=== PATIENT | female | born 1955 | race Caucasian/White ===

== ENCOUNTER → 2017-06-12 | Outpatient (CLI) | payer OTHER ==
--- NOTE | 2017-06-16 10:26 | MM ---
Reason for exam: screening (asymptomatic). Last mammogram was performed 1 year and 2 months ago. History: Patient is postmenopausal and has history of other cancer at age 34. 8 chemotherapies, 1988. Radiation therapy of the left breast, 1988. Physical Findings: A clinical breast exam by your physician is recommended on an annual basis and results should be correlated with mammographic findings. MG 3D Screening Mammo W/Cad Bilateral CC and MLO view(s) were taken. Prior study comparison: April 05, 2016, bilateral MG screening mammo w CAD. August 04, 2015, left breast MG diagnostic mammo LT w CAD. The breast tissue is almost entirely fat. There is no discrete abnormality. No significant changes when compared with prior studies. ASSESSMENT: Negative, BI-RAD 1 RECOMMENDATION: Routine screening mammogram of both breasts in 1 year.
== END | disposition home or self-care (01) ==
LOC: RADMAMWWP 14:52
PROVIDERS: ATTEND Internal Medicine
DX: Z12.31 Encounter for screening mammogram for malignant neoplasm of breast (principal)
CPT/HCPCS: 77063; G0202

== ENCOUNTER → 2019-02-09 | Outpatient (CLI) | payer OTHER ==
--- NOTE | 2019-02-11 11:25 | MM ---
Reason for exam: screening (asymptomatic). Last mammogram was performed 1 year and 8 months ago. History: Patient is postmenopausal and has history of other cancer at age 34. 8 chemotherapies, 1988. Radiation therapy of the left breast, 1988. Physical Findings: A clinical breast exam by your physician is recommended on an annual basis and results should be correlated with mammographic findings. MG 3D Screening Mammo W/Cad Bilateral CC and MLO view(s) were taken. Prior study comparison: June 12, 2017, bilateral MG 3d screening mammo w/cad. April 05, 2016, bilateral MG screening mammo w CAD. The breast tissue is almost entirely fat. No significant changes when compared with prior studies. ASSESSMENT: Benign, BI-RAD 2 RECOMMENDATION: Routine screening mammogram of both breasts in 1 year.
== END | disposition home or self-care (01) ==
LOC: RADMAMWWP 11:27
PROVIDERS: ATTEND Internal Medicine
DX: Z12.31 Encounter for screening mammogram for malignant neoplasm of breast (principal)
CPT/HCPCS: 77063; 77067

== ENCOUNTER → 2021-01-17 | Outpatient (CLI) | payer MEDICARE ==
--- NOTE | 2021-01-18 13:43 | MM ---
Reason for exam: screening (asymptomatic). Last mammogram was performed 1 year and 11 months ago. History: Patient is postmenopausal and has history of other cancer at age 34. 8 chemotherapies, 1988. Radiation therapy of the left breast, 1988. Physical Findings: A clinical breast exam by your physician is recommended on an annual basis and results should be correlated with mammographic findings. MG 3D Screening Mammo W/Cad Bilateral CC and MLO view(s) were taken. Prior study comparison: February 09, 2019, bilateral MG 3d screening mammo w/cad. June 12, 2017, bilateral MG 3d screening mammo w/cad. There are scattered fibroglandular densities. Benign calcifications. There is chronic nodularity in the left breast, stable. No significant changes when compared with prior studies. ASSESSMENT: Benign, BI-RAD 2 RECOMMENDATION: Routine screening mammogram of both breasts in 1 year.
== END | disposition home or self-care (01) ==
LOC: RADMAMWWP 08:34
PROVIDERS: ATTEND Family Medicine
DX: Z12.31 Encounter for screening mammogram for malignant neoplasm of breast (principal)
CPT/HCPCS: 77063; 77067

== ENCOUNTER → 2021-06-13 | Outpatient (CLI) | payer MEDICARE ==
--- NOTE | 2021-06-13 10:44 | CT ---
EXAMINATION TYPE: CT abdomen pelvis wo con DATE OF EXAM: 06/13/2021 COMPARISON: CT chest 09/14/2015 HISTORY: 66-year-old female Generalized pain and pressure for 1-[address] DLP: 1121.9 mGycm. Automated exposure control for dose reduction was used. TECHNIQUE: Contiguous axial scanning of the abdomen and pelvis without IV contrast. Coronal and sagit cecil reconstructions performed. FINDINGS: Heart normal size without pericardial effusion. Partially visualized pulmonary nodule right middle lo be measuring at least 7 mm, not seen in 2015. No pleural effusion. Tiny hiatal hernia. Some surgical change along the stomach should be correlated with patient's surgic al history, possibly some type of vertical stapling procedure. Oral contrast is present, extending in to the splenic flexure of the colon. Medication tablet is noted in the proximal body at the margin of the surgical change, axial image 22. An impacted medication tablet should be excluded. Noncontrast appearance of the liver, adrenal glands, left kidney with small parapelvic cysts, right k idney with extra renal pelvis, spleen, and pancreas otherwise show no gross anomaly. No dilated small bowel, free fluid, or free air. No mesenteric or retroperitoneal lymphadenopathy. Mild overall stool burden. Mild diverticular change distal sigmoid colon. No pericolonic inflammatory change. Milder atherosclerotic calcifications infrarenal abdominal aorta without aneurysm. Bladder is urine distended. Uterus anteverted. Both ovaries are visualized. No abnormal fluid collect ion in the pelvis or pelvic lymphadenopathy. Bones: Moderate to advanced degenerative change at the hips. Osteopenia. Degenerative changes left SI joint. There is hypertrophic facet arthropathy throughout the lumbar spine with grade 1 anterolisthe sis L2-L3, L3-L4, L4-L5. Moderate narrowing of the spinal canal L3-L4. IMPRESSION: 1. A partially visualized pulmonary nodule in the right middle lobe measuring at least 7 mm. This is not clearly seen on the 2015 CT of the chest. Recommend contrast enhanced CT of the chest to further survey the entire lungs and mediastinum. 2. Postsurgical change within the stomach, possible vertical stapling bariatric surgery. Oral contra st has progressed into the colon but there is a medication tablet at the margin of the surgical esquivel e. Correlate to exclude an impacted medication tablet. 3. Tiny hiatal hernia and mild distal sigmoid diverticulosis.
== END | disposition home or self-care (01) ==
LOC: RADCTMAIN 07:21
PROVIDERS: ATTEND Family Medicine
DX: K44.9 Diaphragmatic hernia without obstruction or gangrene (principal); K57.30 Diverticulosis of large intestine without perforation or abscess without bleeding; R91.1 Solitary pulmonary nodule
CPT/HCPCS: 74176; 88108

== ENCOUNTER → 2021-07-02 | Outpatient (CLI) | payer MEDICARE ==
[2021-07-02 12:09] LABS: African American GFR (CKD) >90 (>60 ml/min/1.73 sqM); Blood Urea Nitrogen 21 mg/dL (7-17); Non-African American GFR(CKD) >90 (>60 ml/min/1.73 sqM)
--- NOTE | 2021-07-02 12:54 | CT ---
EXAMINATION TYPE: CT chest w con DATE OF EXAM: 07/02/2021 COMPARISON: 09/14/2015, CT abdomen 06/13/2021 HISTORY: Pulmonary nodule. CT DLP: 767 mGycm Automated exposure control for dose reduction was used. TECHNIQUE: CT scan of the chest is performed with IV Contrast, patient injected with 100ml mL of Isovue 300. SC P Images are created on CT scanner and reviewed. 3D reconstructed images are created on an [employer] 3d workstation and reviewed. FINDINGS: LUNGS: Within the right upper lobe there is a 3 mm nodule axial image 19. Within the right middle lobe there is a 5 mm nodule stable from recent CT. There is no pleural effusion or pneumothorax. No focal pneumonia. No interstitial edema. MEDIASTINUM: There are no greater than 1 cm hilar or mediastinal lymph nodes. No pericardial effusi on is seen. Mild coronary artery calcification. Aorta of normal caliber. OTHER: Hypertrophic and degenerative change of the spine. Small hiatal hernia. Post gastric surgery. Surgical change in the gallbladder fossa. IMPRESSION: 1. Right middle lobe nodule stable from prior exam recommend 6 month follow-up to confirm stability. 2. Right upper lobe nodule retrospectively stable dating back to 2014 and therefore benign.
== END | disposition home or self-care (01) ==
LOC: RADCTMAIN 11:15
PROVIDERS: ATTEND Family Medicine
DX: R91.1 Solitary pulmonary nodule (principal)
CPT/HCPCS: 82565; 84520; 71260; 36415; Q9967

== ENCOUNTER 2021-10-10 08:28 | Day surgery (SDC) | payer MEDICARE ==
[2021-10-03 14:52] VITALS: BMI 35.0
[~2021-10-10 08:28] MED LIST: LACTATED RINGERS 1,000 ML IV SCH
[2021-10-10 09:09] VITALS: TEMP 97.8
[2021-10-10] MEDS ORDERED: LIDOCAINE 1% (10MG/ML) FOR IV START INTRADERMA ONE (09:15)
[2021-10-10] MEDS ORDERED: LIDOCAINE 1% INJ 10MG/ML (20 ML MDV) ONE (09:37)
[2021-10-10] MEDS ORDERED: PROPOFOL 10 MG/ML 20 ML VIAL IV ONE (09:37)
--- NOTE | 2021-10-10 10:06 | P.PCN ---
Date of Procedure: 10/10/21 Procedure(s) Performed: Brief history: Patient is a pleasant 66-year-old white female scheduled for an elective upper endoscopy as well as colonoscopy as a part of evaluation of GERD/screening for colon cancer. She had CT of abdomen and pelvis done in June 2021 and was noted to have a foreign body in the proximal stomach at the margin of the surgical change from her previous gastric bypass surgery. Procedure performed: Esophagogastroduodenoscopy Colonoscopy with biopsy Preoperative diagnosis: GERD/questionable foreign body the stomach Screening for colon cancer Anesthesia: MAC Procedure: After informed consent was obtained from the patient was brought into the endoscopy unit and IV sedation was administered by anesthesia under continuous monitoring. Initially upper endoscopy was done. The Olympus GF 160 video endoscope was inserted inserted into the mouth and esophagus intubated without any difficulty and was gradually advanced into the stomach and duodenum and carefully examined. The bulb and second part of the duodenum appeared normal. The scope was then withdrawn into the stomach adequately insufflated with air and upon careful examination the antruappeared normal. There was evidence of gastric sleeve surgery noted. No foreign body noted in the gastric sleeve. Mucosa of the body, cardia and fundus appeared normal. The scope was then withdrawn into the esophagus. The GE junction was located at 40 cm to the incisors. It appeared regular with mild superficial erythema and one erosion consistent with LA grade a reflux esophagitis. t of the esophagus appeared normal. Patient tolerated the procedure well. At this time the patient continued to remain sedation. Initial digital rectal examination was normal. Olympus CF 160 video area colonoscope was then inserted into the rectum and gradually advanced to the cecum without any difficulty. Careful examination was performed as the scope was gradually being withdrawn. The prep was excellent. The cecum, ascending colon, appeared normal. In the transverse colon there was a 3 mm polyp that was removed by cold biopsy. Rest of the transverse colon, descending colon, sigmoid colon and rectum appeared normal. scattered sigmoid diverticulosis seen. Retroflexion was performed in the rectum and no lesions were noted. Patient tolerated the procedure well. Impression: 1.. Upper Endoscopy revealed evidence of gastric and evidence of gastric sleeve surgery and mild esophagitis. 2. Colonoscopy reveals scattered sigmoid diverticulosis and a 3 mm transverse colon polyp status post removal by cold biopsy Recommendations: Findings of this examination were discussed with the patient as well as her family. He was advised to follow with the biopsy results. If the biopsy which adenoma she can have a repeat colonoscopy in 5 years.
[2021-10-10 10:42] VITALS: BP 150/72; PULSE 62; RESP 16
== END 2021-10-10 10:55 | disposition home or self-care (01) ==
LOC: ORWHC2ENDO 08:28
PROVIDERS: ATTEND Internal Medicine Gastroenterology
DX: Z12.11 Encounter for screening for malignant neoplasm of colon (principal); K21.9 Gastro-esophageal reflux disease without esophagitis; Z98.84 Bariatric surgery status; K20.90 Esophagitis, unspecified without bleeding; K57.30 Diverticulosis of large intestine without perforation or abscess without bleeding; D12.3 Benign neoplasm of transverse colon
CPT/HCPCS: 45380; 43235; 88305; J2001; J2704

== ENCOUNTER → 2022-01-28 | Outpatient (CLI) | payer MEDICARE ==
--- NOTE | 2022-01-28 09:52 | CT ---
EXAMINATION TYPE: CT chest wo con DATE OF EXAM: 01/28/2022 INDICATION: f/up on lung nodule CT DLP: 698 mGy.cm Automated Exposure Control for Dose Reduction was Utilized. TECHNIQUE AND CONTRAST: CT scan of the chest is performed without IV contrast administration. COMPARISON: CT dated 07/02/2021 FINDINGS: Stable 7 mm nodule of mixed density with irregular outline located at the middle lobe (image #33, ser ies 4). There is no change as compared to June 2021 CT scan yet slightly larger as compared to 2014 CT scan when it measured 4 mm. Stable 4 mm nodule in the right upper lobe since 2015 CT scan consist ent with benign nodule and requiring no further follow-up. Multiple tiny peripheral groundglass nodules are seen mainly in the posterior aspects of the lungs, l ikely related to chronic inflammatory/infectious process. They are more prominent compared to the pre vious CT scan and measures up to 3 mm. Slightly mosaic pattern of the right lower lobe, probably rela vinod to chronic small airway disease. Patent trachea and main bronchi. No gross cardiomegaly. No pleural or pericardial effusion. Scattered arterial atherosclerotic calcification with coronary arterial calcifications. No pathologically enla rged lymph nodes in the chest. Aberrant right subclavian artery. Previous cholecystectomy. Degenerative and post interventional nova ges of the right glenohumeral articulation. Osteopenia. Degenerative changes of the thoracic spine. IMPRESSION: Stable 7 mm irregular nodule in the right middle lobe since June 2021 CT scan yet larger as compare d to 2014 CT scan as described above. Another precautionary follow-up CT scan in 6 months is advised. The described bilateral peripheral mainly posterior groundglass pulmonary nodules are nonspecific and could be related to chronic inflammatory/infectious process including chronic atypical infection, pl ease correlate clinically. Further pulmonology consultation can be considered. Other incidental findi ngs as described above.
== END | disposition home or self-care (01) ==
LOC: RADCTMAIN 08:22
PROVIDERS: ATTEND Internal Medicine
DX: R91.1 Solitary pulmonary nodule (principal); R91.8 Other nonspecific abnormal finding of lung field
CPT/HCPCS: 71250

== ENCOUNTER → 2022-02-22 | Outpatient (CLI) | payer MEDICARE ==
--- NOTE | 2022-02-25 09:57 | MM ---
Reason for exam: screening (asymptomatic). Last mammogram was performed 1 year and 1 month ago. History: Patient is postmenopausal and has history of other cancer at age 34. 8 chemotherapies, 1988. Radiation therapy of the left breast, 1988. Physical Findings: A clinical breast exam by your physician is recommended on an annual basis and results should be correlated with mammographic findings. MG 3D Screening Mammo W/Cad Bilateral CC and MLO view(s) were taken. Prior study comparison: January 17, 2021, bilateral MG 3d screening mammo w/cad. February 09, 2019, bilateral MG 3d screening mammo w/cad. There are scattered fibroglandular densities. There is no discrete abnormality. No significant changes when compared with prior studies. ASSESSMENT: Negative, BI-RAD 1 RECOMMENDATION: Routine screening mammogram of both breasts in 1 year.
== END | disposition home or self-care (01) ==
LOC: RADMAMWWP 10:06
PROVIDERS: ATTEND Internal Medicine
DX: Z12.31 Encounter for screening mammogram for malignant neoplasm of breast (principal); Z78.0 Asymptomatic menopausal state
CPT/HCPCS: 77063; 77067

== ENCOUNTER → 2022-04-17 | Outpatient (CLI) | payer MEDICARE ==
--- NOTE | 2022-04-17 11:35 | BD ---
EXAMINATION TYPE: Axial Bone Density DATE OF EXAM: 04/17/2022 COMPARISON: 07/21/2013 CLINICAL HISTORY: 67 years year old Female. ICD-10 CODE: Z78.0 POSTMENOPUASAL Height: 65 Weight: 220.7 FRAX RISK QUESTIONS: Alcohol (3 or more units per day): NO Family History (Parent hip fracture): NO Glucocorticoids (More than 3mos): NO History of Fracture in Adulthood: NO Secondary Osteoporosis: 1. Type 1 Diabetes: NO 2. Hyperthyroidism: NO 3. Menopause before 45: NO 4. Malnutrition: NO 5. Chronic liver disease: NO Rheumatoid Arthritis: NO Current Tobacco Use: NO RISK FACTORS HISTORY OF: Hip Fracture (Right/Left): NO Spine Fracture: NO History of Wrist Fracture: NO Surgery to Spine/Hip(right/left)/Wrist (right/left): LT WRIST CARPAL TUNNEL When: AGE 63 Family History of Osteoporosis: NO Active: YES Diet low in dairy products/other sources of calcium: NO Postmenopausal woman: YES Take estrogen and/or progesterone medications: NO Lost more than 2 inches in height since high school: NO Frequent falls: NO Poor Health: NO Hyperparathyroidism: NO Adrenal Insufficiency: NO MEDICATIONS: Prednisone or other steroids: NO Thyroid Medications: NO Osteoporosis Medications:NO Additional Medications: MULTI VIT., CITRACAL, LIPITOR, NORVASC, VIT C, VIT D, EXAM MEASUREMENTS: Bone mineral densitometry was performed using the [employer] System. Bone mineral density as measured about the Lumbar spine is: ----- L1-L4(G/cm2): 1.442 T Score Values are as follows: ----- L1: 0.6 ----- L2: 1.6 ----- L3: 4.3 ----- L4: 2.0 ----- L1-L4: 2.2 Bone mineral density has: DECREASED 8.0 % since study of: 07/21/2013 Bone mineral density about the R hip (g/cm2): 0.888 Bone mineral density about the L hip (g/cm2): 1.056 T Score values are as follows: -----R Neck: -1.1 -----L Neck: 0.1 -----R Total: -0.7 -----L Total: -0.2 Bone mineral density has: DECREASED 7.1 % since study of: 07/21/2013 FRAX%s: The graph provided illustrates a 8.0% chance for a major osteoporotic fx and a 0.7% chance fo r the hips probability for fx in 10 years time. IMPRESSION: No evidence for osteoporosis or osteopenia. NOTE: T-SCORE=SD OF THE YOUNG ADULT MEAN.
== END | disposition home or self-care (01) ==
LOC: RADBDWWP 09:07
PROVIDERS: ATTEND Internal Medicine
DX: Z78.0 Asymptomatic menopausal state (principal)
CPT/HCPCS: 77080

== ENCOUNTER → 2022-08-12 | Outpatient (CLI) | payer MEDICARE ==
[2022-08-12 13:51] LABS: African American GFR (CKD) >90 (>60 ml/min/1.73 sqM); Blood Urea Nitrogen 24 mg/dL (7-17); Non-African American GFR(CKD) 82 (>60 ml/min/1.73 sqM)
--- NOTE | 2022-08-12 14:40 | CT ---
EXAMINATION TYPE: CT chest w con DATE OF EXAM: 08/12/2022 COMPARISON: Prior CT January 28, 2022 and older studies HISTORY: f/u nodules CT DLP: 539.2 mGycm. Automated Exposure Control for Dose Reduction was Utilized. TECHNIQUE: CT scan of the thorax is performed following with IV Contrast, patient injected with 70cc mL of Isovue 300. FINDINGS: LUNGS: Stable 6 to 7 mm mixed nodule right middle lobe axial image 36. Stable 4 mm posterior right up per lobe nodule axial image 20. There is no pleural effusion or pneumothorax seen. The tracheobronc hial tree is patent. MEDIASTINUM: There are no greater than 1 cm hilar or mediastinal lymph nodes. No cardiomegaly or pe ricardial effusion is seen. Coronary artery calcification is redemonstrated which is noted marker for underlying coronary artery disease. 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 OTHER: Surgical changes from gastric bypass procedure are redemonstrated. Cholecystectomy clips are a gain seen. IMPRESSION: Stable 7 mm right middle lobe nodule. No new or enlarging greater than 5 mm pulmonary nod ules.
== END | disposition home or self-care (01) ==
LOC: RADCTMAIN 12:49
PROVIDERS: ATTEND Internal Medicine Critical Care Medicine
DX: R91.1 Solitary pulmonary nodule (principal)
CPT/HCPCS: 82565; 84520; 71260; 36415; Q9967

== ENCOUNTER → 2023-03-10 | Outpatient (CLI) | payer MEDICARE ==
--- NOTE | 2023-03-11 12:13 | MM ---
Reason for Exam: Screening (asymptomatic). Last mammogram was performed 1 year(s) and 1 month(s) ago. Patient History: Menarche at age 11. First Full-Term at age 25. Postmenopausal. Other cancer, age 34. 1988, Chemotherapy. 1988, Chemotherapy. 1988, Chemotherapy. 1988, Chemotherapy. 1988, Chemotherapy. 1988, Chemotherapy. 1988, Chemotherapy. 1988, Chemotherapy. 1988, Radiation Therapy on the left side. Risk Values: Blanka 5 year model risk: 1.9%. NCI Lifetime model risk: 5.9%. Prior Study Comparison: 02/09/2019 Bilateral Screening Mammogram, [facility]. 01/17/2021 Bilateral Screening Mammogram, [facility]. 02/22/2022 Bilateral Screening Mammogram, [facility]. Tissue Density: The breast tissue is almost entirely fat. Findings: Analyzed By CAD. There is no suspicious group of microcalcifications or new suspicious mass in either breast. Overall Assessment: Negative, BI-RAD 1 Management: Screening Mammogram of both breasts in [address] [facility] will attempt to contact patient to return for supplemental views and ultrasound if indicated. Patient should continue monthly self-breast exams. A clinical breast exam by your physician is recommended on an annual basis. This exam should not preclude additional follow-up of suspicious palpable abnormalities. Note on Blanka scores and lifetime risk: 1. A Blanka score greater than 3% is considered moderate risk. If this is the case, consider specialist referral to assess eligibility for a risk reducing agent. 2. If overall lifetime risk for the development of breast cancer is 20% or higher, the patient may qualify for future screening with alternating mammogram and breast MRI. Electronically signed and approved by: Galen Beebe DO
== END | disposition home or self-care (01) ==
LOC: RADMAMWWP 10:50
PROVIDERS: ATTEND Internal Medicine
DX: Z12.31 Encounter for screening mammogram for malignant neoplasm of breast (principal); Z78.0 Asymptomatic menopausal state
CPT/HCPCS: 77063; 77067

== ENCOUNTER → 2023-08-29 | Outpatient (CLI) | payer MEDICARE ==
[2023-08-29 10:49] LABS: African American GFR (CKD) >90 (>60 ml/min/1.73 sqM); Blood Urea Nitrogen 16 mg/dL (7-17); Non-African American GFR(CKD) >90 (>60 ml/min/1.73 sqM)
--- NOTE | 2023-08-29 12:17 | CT ---
EXAMINATION TYPE: CT chest w con DATE OF EXAM: 08/29/2023 COMPARISON: 08/12/2022, 01/28/2022 HISTORY: f/u lung nodule CT DLP: 508.1 mGycm Automated exposure control for dose reduction was used. TECHNIQUE: CT scan of the chest is performed with IV Contrast, patient injected with 100 mL of Isovue 300. MIP Images are created on CT scanner and reviewed. 3D reconstructed images are created on an independent workstation and reviewed. FINDINGS: LUNGS: The lungs are grossly clear, there is no concerning consolidative pneumonia identified. Ther e is no pleural effusion or pneumothorax seen. The tracheobronchial tree is patent. There is a stable 3 mm nodule right upper lobe image 18. Stable 2 mm subpleural nodule right upper lobe image 15. There is a stable right middle lobe nodule measuring 5 mm axial image 30. MEDIASTINUM: There are no greater than 1 cm hilar or mediastinal lymph nodes. No pericardial effusi on is seen. Coronary artery calcification. Atherosclerotic change aorta but no evidence of aneurysm. Calcification aortic valve. OTHER: Postcholecystectomy changes. Hypertrophic and degenerative changes of the spine with diffuse osteopenia. Small hiatal hernia. Postsurgical change right shoulder. Bilateral glenohumeral joint art hropathy. IMPRESSION: 1. Stable right-sided pulmonary nodules unchanged from prior exam. Findings felt to be benign and rec ommend 12 month follow-up low dose screening CT as clinically warranted.
== END | disposition home or self-care (01) ==
LOC: RADCTMAIN 10:10
PROVIDERS: ATTEND Internal Medicine Critical Care Medicine
DX: R91.1 Solitary pulmonary nodule (principal)
CPT/HCPCS: 82565; 84520; 71260; 36415; Q9967

== ENCOUNTER → 2023-09-15 | Outpatient (CLI) | payer MEDICARE ==
--- NOTE | 2023-09-16 07:38 | CA ---
Transthoracic Echo Report Name: Fouzia Marroquin Age: 68 Gender: F : 1955 Exam Date: 09/15/2023 18:08 Exam Location: [place] [facility] Ht (in): 66 Wt (lb): 219 Ordering Physician: Kirill Garza MD Attending/Referring Phys: Kirill Garza MD Director Furniture Malaika Jon [facility] Procedure CPT: Indications: M43.22, M40.204, M47.814 Cardiac Hx: Technical Quality: Technically difficult study Contrast 1: Total Dose (mL): Contrast 2: Total Dose (mL): MEASUREMENTS (Male / Female) Normal Values 2D ECHO LV Diastolic Diameter PLAX 4.4 cm 4.2 - 5.9 / 3.9 - 5.3 cm LV Systolic Diameter PLAX 3.2 cm IVS Diastolic Thickness 1.3 cm 0.6 - 1.0 / 0.6 - 0.9 cm LVPW Diastolic Thickness 1.2 cm 0.6 - 1.0 / 0.6 - 0.9 cm LV Relative Wall Thickness 0.6 LVOT Diameter 2.0 cm M-MODE Aortic Root Diameter MM 2.8 cm LA Systolic Diameter MM 3.4 cm LA Ao Ratio MM 1.2 AV Cusp Separation MM 1.4 cm DOPPLER AV Peak Velocity 209.7 cm/s AV Peak Gradient 17.6 mmHg AV Mean Velocity 159.6 cm/s AV Mean Gradient 11.1 mmHg AV Velocity Time Integral 48.6 cm LVOT Peak Velocity 114.9 cm/s LVOT Peak Gradient 5.3 mmHg LVOT Velocity Time Integral 22.9 cm LVOT Stroke Volume 74.6 cm??? LVOT Stroke Volume Index 35.9 ml/m??? LVOT Cardiac Index 2450.5 cm???/min???m??? AV Area Cont Eq vti 1.5 cm??? AV Area Cont Eq pk 1.8 cm??? Mitral E Point Velocity 49.6 cm/s Mitral A Point Velocity 61.0 cm/s Mitral E to A Ratio 0.8 MV Deceleration Time 244.9 ms LV E' Lateral Velocity 11.6 cm/s Mitral E to LV E' Lateral Ratio 4.3 LV E' Septal Velocity 9.1 cm/s Mitral E to LV E' Septal Ratio 5.4 TR Peak Velocity 209.0 cm/s TR Peak Gradient 17.5 mmHg Right Atrial Pressure 3.0 mmHg Pulmonary Artery Systolic Pressu 20.5 mmHg Right Ventricular Systolic Press 20.5 mmHg FINDINGS Left Ventricle Left ventricular cavity size normal. Normal left ventricular systolic function with no obvious regional wall motion abnormalities. Left ventricular ejection fraction is estimated at 55-60%.Mildly increased left ventricular wall thickness. Normal left ventricular wall motion. Right Ventricle Mild right ventricular dilatation. Normal pulmonary pressure Right Atrium Normal right atrial size. Left Atrium Left atrial size at the upper limits of normal. Mitral Valve Structurally normal mitral valve. [id number] mitral regurgitation. Aortic Valve Aortic valve not well visualized. Thickening of the aortic valve cusps with reduced excursion. Aortic valve sclerosis. Tricuspid Valve Tricuspid valve not well visualized. Mild tricuspid regurgitation. Pulmonic Valve Pulmonic valve not well visualized. Pericardium No pericardial effusion. Aorta Normal size aortic root. CONCLUSIONS 1. Normal left ventricular size and systolic function 2. Mild to moderate mitral with mild tricuspid regurgitation Previewed by: Dr. Berhane Han MD (Electronically Signed) Final Date: 16 September 2023 07:37
== END | disposition home or self-care (01) ==
LOC: RADECHMAIN 17:52
PROVIDERS: ATTEND Internal Medicine
DX: I08.1 Rheumatic disorders of both mitral and tricuspid valves (principal); M43.22 Fusion of spine, cervical region; M40.204 Unspecified kyphosis, thoracic region; M47.814 Spondylosis without myelopathy or radiculopathy, thoracic region; R01.1 Cardiac murmur, unspecified
CPT/HCPCS: 93306

== ENCOUNTER → 2023-12-29 | Outpatient (CLI) | payer MEDICARE ==
[2023-12-29 12:15] LABS: African American GFR (CKD) >90 (>60 ml/min/1.73 sqM); Blood Urea Nitrogen 22 mg/dL (7-17); Non-African American GFR(CKD) >90 (>60 ml/min/1.73 sqM)
--- NOTE | 2023-12-29 14:27 | CT ---
EXAMINATION TYPE: CT soft tissue neck wo/w con DATE OF EXAM: 12/29/2023 1:10 PM COMPARISON: None HISTORY: left sided swelling. History of non-Hodgkin's lymphoma CT DLP: 1260 mGycm Automated exposure control for dose reduction was used. CONTRAST: CT scan of the neck is performed following with IV Contrast, patient injected with 100 mL of Isovue 3 00. Axial images are obtained, coronal and sagittal reformatted images are reviewed. FINDINGS: The thyroid gland is normal in size and there is no focal mass or nodule. There is no supraclavicular adenopathy. The larynx including the cricoid, arytenoid and thyroid cartilages as well as vocal cords are normal and symmetric. The tongue base, epiglottis, area of both carotid bulbs, piriform sinuses and valleculae are normal a nd symmetric. There is no pharyngeal or parapharyngeal soft tissue mass or enhancement. The submandibular glands and parotid glands are normal and symmetric. The great vessels and neck are normal. There is no adenopathy. There is no soft tissue inflammation or abscess. The skull base is intact. IMPRESSION: No significant abnormality seen.
--- NOTE | 2023-12-29 18:09 | XR ---
EXAMINATION TYPE: XR chest 2V DATE OF EXAM: 12/29/2023 COMPARISON: 12/18/2011 HISTORY: 68-year-old female R05.9, cough and left-sided chest pain TECHNIQUE: Frontal and lateral views FINDINGS: Heart normal size without pericardial effusion. Other scattered calcifications. Strandy atelectasis a t the left base. No consolidation or pleural effusion. Suspect posttraumatic right glenohumeral joint OA with multiple large surgical jeanie within the glenoid. IMPRESSION: No acute cardiopulmonary process.
== END | disposition home or self-care (01) ==
LOC: RADCTMAIN 11:19
PROVIDERS: ATTEND Internal Medicine
DX: R05.9 Cough, unspecified (principal); R59.9 Enlarged lymph nodes, unspecified; R07.89 Other chest pain; R60.0 Localized edema; Z85.72 Personal history of non-Hodgkin lymphomas
CPT/HCPCS: 82565; 84520; 71046; 70492; 36415; Q9967

== ENCOUNTER → 2024-01-06 | Outpatient (CLI) | payer MEDICARE ==
--- NOTE | 2024-01-06 21:34 | US ---
EXAMINATION TYPE: US kidneys/renal and bladder DATE OF EXAM: 01/06/2024 COMPARISON: None CLINICAL INDICATION: Female, 68 years old with history of R35.0 FREQUENCY OF MICTURITION; EXAM MEASUREMENTS: Right Kidney: 9.3 x 5.1 x 5.0 cm Left Kidney: 9.6 x 4.9 x 4.6 cm Right Kidney: No hydronephrosis or masses seen Left Kidney: No hydronephrosis or masses seen Bladder: wnl Bilateral Jets seen: Yes IMPRESSION: No hydronephrosis or other specific abnormality.
== END | disposition home or self-care (01) ==
LOC: RADUSWWP 15:33
PROVIDERS: ATTEND Internal Medicine
DX: R35.0 Frequency of micturition (principal)
CPT/HCPCS: 76770

== ENCOUNTER 2024-03-15 09:23 | Emergency (ER) | payer MEDICARE ==
[2024-03-15 10:04] LABS: Basophils % (A) 0 %; Eosinophils # (A) 0.5 k/uL (0-0.7); Eosinophils % (A) 5 %; HCT 42.3 % (34.0-46.0); HGB 13.6 gm/dL (11.4-16.0); Lymphocytes # (A) 0.4 k/uL (1.0-4.8); Lymphocytes % (A) 4 %; MCH 27.2 pg (25.0-35.0); MCHC 32.1 g/dL (31.0-37.0); MCV 84.7 fL (80.0-100.0); Mean Platelet Volume 7.7; Monocytes # (A) 0.6 k/uL (0-1.0); Monocytes % (A) 6 %; Neutrophils # (A) 8.1 k/uL (1.3-7.7); Neutrophils % (A) 84 %; Platelet Count 231 k/uL (150-450); RBC 4.99 m/uL (3.80-5.40); RDW 13.3 % (11.5-15.5); WBC 9.7 k/uL (3.8-10.6)
[2024-03-15 10:15] LABS: Appearance,Urine Clear (Clear); Bacteria,Urine Rare /hpf; Bilirubin,Urine Negative (Negative); Blood,Urine Trace (Negative); Color,Urine Colorless; Glucose,Urine (UA) Negative (Negative); Ketones,Urine Negative (Negative); Leukocyte Esterase,Urine Moderate (Negative); Nitrite,Urine Negative (Negative); Protein,Urine Negative (Negative); RBC,Urine 2 /hpf (0-5); Specific Gravity,Urine 1.007 (1.001-1.035); Squamous Epithelial Cell,Urine 3 /hpf (0-4); Urobilinogen,Urine <2.0 mg/dL (<2.0); WBC,Urine 17 /hpf (0-5)
[2024-03-15] MEDS: SODIUM CHLORIDE 0.9% 1,000 ML IV STA (10:17)
[2024-03-15] MEDS: methylPREDNISolone SOD SUCCI 125 MG/2 ML VIAL IV STA (10:19)
[2024-03-15] MEDS: FAMOTIDINE 20 MG/2 ML VIAL IV STA (10:19)
[2024-03-15] MEDS: KETOROLAC 15 MG/ML 1 ML VIAL IVP STA (10:19)
[2024-03-15] MEDS: diphenhydrAMINE 50 MG/ML 1 ML VIAL IVP STA (10:19)
[2024-03-15 10:35] LABS: ALT 36 U/L (4-34); AST 35 U/L (14-36); African American GFR (CKD) 89 (>60 ml/min/1.73 sqM); Albumin 3.8 g/dL (3.5-5.0); Alkaline Phosphatase 92 U/L (38-126); Anion Gap 5 mmol/L; Blood Urea Nitrogen 14 mg/dL (7-17); Calcium 9.4 mg/dL (8.4-10.2); Carbon Dioxide 30 mmol/L (22-30); Chloride 104 mmol/L (98-107); Glucose 113 mg/dL (74-99); Non-African American GFR(CKD) 77 (>60 ml/min/1.73 sqM); Potassium 3.9 mmol/L (3.5-5.1); Sodium 139 mmol/L (137-145); Total Bilirubin 0.5 mg/dL (0.2-1.3); Total Protein 6.8 g/dL (6.3-8.2)
[2024-03-15] MEDS: TRIAMCINOLONE ACET 0.5% CREAM 15 GM TUBE TOPICAL STA (11:02)
[2024-03-15] MEDS: cefTRIAXone IN SWFI 1,000 MG/10 ML SYRINGE IVP STA (11:14)
--- NOTE | 2024-03-15 11:35 | ED ---
Female Urogenital HPI - General Chief complaint: Urogenital Stated complaint: UTI Time Seen by Provider: 03/15/24 09:30 Source: patient, RN notes reviewed Mode of arrival: ambulatory Limitations: no limitations - History of Present Illness Initial comments: This is a 69-year-old female who presents to the emergency department for a rash and persistent UTI. States that she was diagnosed with a UTI on 03/08. She was started on Keflex. Urine culture returned that Keflex would not be effective and she was started on Macrobid a couple of days ago. The day after starting the Macrobid she developed an itchy red rash to her lower legs. She was using hydrocortisone cream without much relief. Denies any chest pain or shortness of breath. Wonders if she may be having an allergic reaction to the Macrobid. Her urinary symptoms in terms of the suprapubic pressure and pain have started to improve. - Related Data Home Medications Medication Instructions Recorded Confirmed Ascorbic Acid [Vitamin C] 500 mg PO DAILY 10/03/21 10/10/21 Aspirin [Adult Low Dose Aspirin EC] 81 mg PO DAILY 10/03/21 10/10/21 Atorvastatin [Lipitor] 20 mg PO DAILY 10/03/21 10/10/21 Calcium Carb/Vitamin D3/Vit K1 1 tab PO DAILY 10/03/21 10/10/21 [Citracal-D3 500 mg Soft Chew] Multivitamins, Thera [Multivitamin 1 tab PO DAILY 10/03/21 10/10/21 (formulary)] Vitamin C/Biotin [Hair, Skin and 1 tab PO DAILY 10/03/21 10/10/21 Nails Chew] amLODIPine [Norvasc] 10 mg PO DAILY 10/03/21 10/10/21 Previous Rx's Medication Instructions Recorded Ciprofloxacin HCl [Cipro] 250 mg PO BID 3 Days #6 tab 03/15/24 Famotidine 40 mg PO DAILY 5 Days #5 tablet 03/15/24 Triamcinolone 0.1% Cream [Kenalog 1 applicatio TOPICAL QID PRN #80 gm 03/15/24 0.1% Cream] predniSONE 50 mg PO DAILY 5 Days #5 tab 03/15/24 Allergies Allergy/AdvReac Type Severity Reaction Status Date / Time Sulfa (Sulfonamide Allergy Rash/Hives Verified 03/15/24 09:28 Antibiotics) Review of Systems ROS Statement: Those systems with pertinent positive or pertinent negative responses have been documented in the HPI. ROS Other: All systems not noted in ROS Statement are negative. Past Medical History Past Medical History: Cancer, Hyperlipidemia, Hypertension Additional Past Medical History / Comment(s): pt states has pill stuck in gi t ract. 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 History of Any Multi-Drug Resistant Organisms: None Reported Additional Past Surgical History / Comment(s): lymph node removed lt groin area, rt arm dislocated, lt carpal tunnel Past Anesthesia/Blood Transfusion Reactions: No Reported Reaction Past Psychological History: No Psychological Hx Reported Smoking Status: Never smoker Past Alcohol Use History: Occasional Past Drug Use History: None Reported - Past Family History Father Family Medical History: Cancer Additional Family Medical History / Comment(s): melanoma General Exam Limitations: no limitations General appearance: alert, in no apparent distress Head exam: Present: atraumatic, normocephalic, normal inspection Respiratory exam: Present: normal lung sounds bilaterally. Absent: respiratory distress, wheezes, rales, rhonchi, stridor Cardiovascular Exam: Present: regular rate, normal rhythm, normal heart sounds. Absent: systolic murmur, diastolic murmur, rubs, gallop, clicks GI/Abdominal exam: Present: soft, normal bowel sounds. Absent: distended, tenderness, guarding, rebound, rigid Extremities exam: Present: other (Erythematous rash to the bilateral lower extremities. No swelling or tenderness.) Neurological exam: Present: alert, oriented X3, CN II-XII intact Psychiatric exam: Present: normal affect, normal mood Skin exam: Present: warm, dry, intact, normal color. Absent: rash Course Vital Signs 03/15/24 03/15/24 03/15/24 09:24 11:34 12:38 Temperature 98.8 F 98.1 F 98.4 F Pulse Rate 74 67 67 Respiratory 20 18 18 Rate Blood Pressure 132/87 100/65 116/70 O2 Sat by Pulse 95 94 L 97 Oximetry Medical Decision Making - Medical Decision Making This is a 69 year old female who presents to the emergency department for urinary symptoms and a rash. Was pt. sent in by a medical professional or institution? @ -No Did you speak to anyone other than the patient for history? @ -No Did you review nursing and triage notes? @ -Yes, and I agree, it is accurate with regards to the patient's symptoms. Were old charts reviewed? @ -Urine culture from 03/08 with antibiotic diagram. Differential Diagnosis? @ -Differential Rash: Roseola, measles, Lyme disease, erythema multiforme, cellulitis, toxic shock syndrome, Natan Medardo syndrome, Kawasaki disease, negin mountain spotted fever, contact dermatitis, allergic dermatitis, measles, mumps, rubella, varicella, meningococcal disease, drug reaction, coxsackievirus, This is not meant to be an all-inclusive list. EKG interpreted by me (3pts min.)? @ -Not obtained X-rays interpreted by me (1pt min.)? @ -Not obtained CT interpreted by me (1pt min.)? @ -Not obtained U/S interpreted by me (1pt. min.)? @ -Not obtained What testing was considered but not performed? (CT, X-rays, U/S, labs)? Why? @ -None What meds were considered but not given? Why? @ -None Did you discuss the management of the patient with other professionals? @ -No Did you reconcile home meds? @ -No Was smoking cessation discussed for >3mins.? @ -No Was critical care preformed (if so, how long)? @ -No Were there social determinants of health that impacted care today? How? (Homelessness, low income, unemployed, alcoholism, drug addiction, transportation, low edu. Level, literacy, decrease access to med. care, fci, rehab)? @ -No Was there de-escalation of care discussed even if they declined? (Discuss DNR or withdrawal of care, Hospice)? @ -No What co-morbidities impacted this encounter? (DM, HTN, Smoking, COPD, CAD, Cancer, CVA, Hep., AIDS, mental health diagnosis, sleep apnea, morbid obesity)? @ -None Was patient admitted / discharged? @ -Discharged. Lab work unremarkable. Urinalysis has some white blood cells still present, but is not overtly positive for infection. She was given an allergy cocktail consisting of Solu-medrol, Benadryl, and famotidine for the rash. Toradol administered for discomfort. Triamcinolone cream was applied to the rash as well. Patient noted improvement in symptoms following medications. Urine culture from 03/08 was reviewed. She was given 1 g of ceftriaxone in the emergency department and a prescription for ciprofloxacin was provided, which the bacteria are shown to be susceptible to based on the urine culture from 03/08. She was also given a prescription for prednisone and famotidine for further management of the rash and she was sent home with the triamcinolone cream to continue using as needed. Advised follow-up with her primary care provider. Undiagnosed new problem with uncertain prognosis? @ -None Drug Therapy requiring intensive monitoring for toxicity (Heparin, Nitro, Insulin, Cardizem)? @ -None Were any procedures done? @ -None Diagnosis/symptom? @ -UTI, rash Acute, or Chronic, or Acute on Chronic? @ -Acute Uncomplicated (without systemic symptoms) or Complicated (systemic symptoms)? @ -Uncomplicated Side effects of treatment? @ -None Exacerbation, Progression, or Severe Exacerbation] @ -Not applicable Poses a threat to life or bodily function? @ -No Return precautions reviewed in depth, the patient is instructed to return to the emergency department with any new, worsening, or concerning symptoms. Patient verbalized understanding. This case was discussed in detail with the attending ED physician, Dr. Starr. Presentation, findings, and treatment plan discussed in detail as well. - Lab Data Result diagrams: 03/15/24 09:50 03/15/24 09:50 Lab Results 03/15/24 03/15/24 03/15/24 Range/Units 09:50 09:50 09:50 WBC 9.7 (3.8-10.6) k/uL RBC 4.99 (3.80-5.40) m/uL Hgb 13.6 (11.4-16.0) gm/dL Hct 42.3 (34.0-46.0) % MCV 84.7 (80.0-100.0) fL MCH 27.2 (25.0-35.0) pg MCHC 32.1 (31.0-37.0) g/dL RDW 13.3 (11.5-15.5) % Plt Count 231 (150-450) k/uL MPV 7.7 Neutrophils % 84 % Lymphocytes % 4 % Monocytes % 6 % Eosinophils % 5 % Basophils % 0 % Neutrophils # 8.1 H (1.3-7.7) k/uL Lymphocytes # 0.4 L (1.0-4.8) k/uL Monocytes # 0.6 (0-1.0) k/uL Eosinophils # 0.5 (0-0.7) k/uL Basophils # 0.0 (0-0.2) k/uL Sodium 139 (137-145) mmol/L Potassium 3.9 (3.5-5.1) mmol/L Chloride 104 (98-107) mmol/L Carbon Dioxide 30 (22-30) mmol/L Anion Gap 5 mmol/L BUN 14 (7-17) mg/dL Creatinine 0.79 (0.52-1.04) mg/dL Est GFR (CKD-EPI)AfAm 89 (>60 ml/min/1.73 sqM) Est GFR (CKD-EPI)NonAf 77 (>60 ml/min/1.73 sqM) Glucose 113 H (74-99) mg/dL Plasma Lactic Acid Joshua (0.7-2.0) mmol/L Calcium 9.4 (8.4-10.2) mg/dL Total Bilirubin 0.5 (0.2-1.3) mg/dL AST 35 (14-36) U/L ALT 36 H (4-34) U/L Alkaline Phosphatase 92 (38-126) U/L Total Protein 6.8 (6.3-8.2) g/dL Albumin 3.8 (3.5-5.0) g/dL Urine Color Colorless Urine Appearance Clear (Clear) Urine pH 6.0 (5.0-8.0) Ur Specific Langley 1.007 (1.001-1.035) Urine Protein Negative (Negative) Urine Glucose (UA) Negative (Negative) Urine Ketones Negative (Negative) Urine Blood Trace H (Negative) Urine Nitrite Negative (Negative) Urine Bilirubin Negative (Negative) Urine Urobilinogen <2.0 (<2.0) mg/dL Ur Leukocyte Esterase Moderate H (Negative) Urine RBC 2 (0-5) /hpf Urine WBC 17 H (0-5) /hpf Ur Squamous Epith Cells 3 (0-4) /hpf Urine Bacteria Rare H (None) /hpf 03/15/24 Range/Units 09:50 WBC (3.8-10.6) k/uL RBC (3.80-5.40) m/uL Hgb (11.4-16.0) gm/dL Hct (34.0-46.0) % MCV (80.0-100.0) fL MCH (25.0-35.0) pg MCHC (31.0-37.0) g/dL RDW (11.5-15.5) % Plt Count (150-450) k/uL MPV Neutrophils % % Lymphocytes % % Monocytes % % Eosinophils % % Basophils % % Neutrophils # (1.3-7.7) k/uL Lymphocytes # (1.0-4.8) k/uL Monocytes # (0-1.0) k/uL Eosinophils # (0-0.7) k/uL Basophils # (0-0.2) k/uL Sodium (137-145) mmol/L Potassium (3.5-5.1) mmol/L Chloride (98-107) mmol/L Carbon Dioxide (22-30) mmol/L Anion Gap mmol/L BUN (7-17) mg/dL Creatinine (0.52-1.04) mg/dL Est GFR (CKD-EPI)AfAm (>60 ml/min/1.73 sqM) Est GFR (CKD-EPI)NonAf (>60 ml/min/1.73 sqM) Glucose (74-99) mg/dL Plasma Lactic Acid Joshua 1.2 (0.7-2.0) mmol/L Calcium (8.4-10.2) mg/dL Total Bilirubin (0.2-1.3) mg/dL AST (14-36) U/L ALT (4-34) U/L Alkaline Phosphatase (38-126) U/L Total Protein (6.3-8.2) g/dL Albumin (3.5-5.0) g/dL Urine Color Urine Appearance (Clear) Urine pH (5.0-8.0) Ur Specific Langley (1.001-1.035) Urine Protein (Negative) Urine Glucose (UA) (Negative) Urine Ketones (Negative) Urine Blood (Negative) Urine Nitrite (Negative) Urine Bilirubin (Negative) Urine Urobilinogen (<2.0) mg/dL Ur Leukocyte Esterase (Negative) Urine RBC (0-5) /hpf Urine WBC (0-5) /hpf Ur Squamous Epith Cells (0-4) /hpf Urine Bacteria (None) /hpf - Radiology Data Radiology results: report reviewed, image reviewed Disposition Clinical Impression: UTI (urinary tract infection), Allergic drug rash Disposition: HOME SELF-CARE Instructions (If sedation given, give patient instructions): Urinary Tract In fection in Women (ED), Acute Rash (ED) Additional Instructions: Return to the emergency department with any new, worsening, or concerning symptoms. Take the prednisone and famotidine daily for 5 days, with your first dose beginning tomorrow, as you received the medication in the emergency department today. Continue using an [id number] antihistamine such as Benadryl. You can also continue to apply the triamcinolone cream provided in the emergency department 3-4 times daily. Stop taking the Macrobid and begin taking the new antibiotic as prescribed for 3 days. Follow up with your primary care provider in 1-2 days. You can also contact the urologist regarding the emergency department visit to see if they will see you sooner as an ER follow up patient. Prescriptions: Ciprofloxacin HCl [Cipro] 250 mg PO BID 3 Days #6 tab Famotidine 40 mg PO DAILY 5 Days #5 tablet Triamcinolone 0.1% Cream [Kenalog 0.1% Cream] 1 applicatio TOPICAL QID PRN #80 gm PRN Reason: Itching predniSONE 50 mg PO DAILY 5 Days #5 tab Is patient prescribed a controlled substance at d/c from ED?: No Referrals: Kirill Garza DO [Primary Care Provider] - 1-2 days Time of Disposition: 12:16
[2024-03-15 12:06] VITALS: PULSE 67; RESP 18
[2024-03-15 12:52] VITALS: BP 116/70; TEMP 98.4
== END 2024-03-15 12:52 | disposition home or self-care (01) ==
LOC: EC 09:23
DX: N39.0 Urinary tract infection, site not specified (principal); L27.0 Generalized skin eruption due to drugs and medicaments taken internally; T37.8X5A Adverse effect of other specified systemic anti-infectives and antiparasitics, initial encounter; Z88.2 Allergy status to sulfonamides
CPT/HCPCS: 36415; 80053; 83605; 85025; 81001; 87086; 99284; 96374; 96375 ×4; 96361; J1200; J0696; J3490; J1885; J2919

== ENCOUNTER → 2024-03-16 | Outpatient (CLI) | payer MEDICARE ==
--- NOTE | 2024-03-17 08:15 | MM ---
Reason for Exam: Screening (asymptomatic). Last screening mammogram was performed 12 month(s) ago. Patient History: Menarche at age 11. First Full-Term at age 25. Postmenopausal. Patient has history of breast feeding. Other cancer, age 34. Previous chest radiation therapy. Previous chemotherapy. 1988, Chemotherapy. 1988, Radiation Therapy on the left side. Risk Values: Blanka 5 year model risk: 1.9%. NCI Lifetime model risk: 5.6%. Prior Study Comparison: 01/17/2021 Bilateral Screening Mammogram, [facility]. 02/22/2022 Bilateral Screening Mammogram, [facility]. 03/10/2023 Bilateral MG 3D screening mammo w/cad, [facility]. Tissue Density: There are scattered areas of fibroglandular density. Findings: Analyzed By CAD. There is no suspicious group of microcalcifications or new suspicious mass in either breast. Stable right axillary lymph node. Benign appearing calcifications bilaterally. Overall Assessment: Benign, BI-RAD 2 Management: Screening Mammogram of both breasts in 1 year. . Patient should continue monthly self-breast exams. A clinical breast exam by your physician is recommended on an annual basis. This exam should not preclude additional follow-up of suspicious palpable abnormalities. Note on Blanka scores and lifetime risk: 1. A Blanka score greater than 3% is considered moderate risk. If this is the case, consider specialist referral to assess eligibility for a risk reducing agent. 2. If overall lifetime risk for the development of breast cancer is 20% or higher, the patient may qualify for future screening with alternating mammogram and breast MRI. Electronically signed and approved by: Jonatan Ortiz M.D. Radiologis
== END | disposition home or self-care (01) ==
LOC: RADMAMWWP 08:22
PROVIDERS: ATTEND Internal Medicine
DX: Z12.31 Encounter for screening mammogram for malignant neoplasm of breast (principal); Z78.0 Asymptomatic menopausal state
CPT/HCPCS: 77063; 77067

== ENCOUNTER 2024-06-20 15:12 | Emergency (ER) | payer MEDICARE ==
[2024-06-20] MEDS ORDERED: ACETAMINOPHEN TAB 500 MG TAB ONE (16:50)
[2024-06-20] MEDS ORDERED: SODIUM CHLORIDE 0.9% 1,000 ML BAG ONE (16:55)
[2024-06-20] MEDS ORDERED: methylPREDNISolone SOD SUCCI 125 MG/2 ML VIAL ONE (19:51)
[2024-06-20] MEDS ORDERED: IPRATROPIUM-ALBUTEROL 3 ML NEB ONE (19:52)
--- NOTE | 2024-07-21 14:06 | XR ---
[id number] CARSON VAUGHN : 1955 EXAM: Frontal and lateral view of the chest. DATE: 06/20/2024 19:59 INDICATION: COUGH, CONGESTION COMPARISON: None, please note PACS downtime occurred during the radiologist interpretation of these i mages with limited priors/reports.. TECHNIQUE: Frontal and lateral views of the chest. FINDINGS: Lungs/Pleura: . There is no evidence of pleural effusion, focal consolidation, or pneumothorax. Pulmonary vascularity: Unremarkable. Heart/mediastinum: Cardiomediastinal silhouette is unremarkable. Musculoskeletal: No acute osseous pathology. Other findings: No significant findings. IMPRESSION: No acute process.
== END 2024-06-20 20:20 | disposition home or self-care (01) ==
LOC: EC 15:12
DX: J06.9 Acute upper respiratory infection, unspecified (principal)
CPT/HCPCS: 71046; 93005; 94640; 96361; 96374; 99283

== ENCOUNTER → 2024-09-29 | Outpatient (CLI) | payer MEDICARE ==
--- NOTE | 2024-11-17 11:05 | ECHOF ---
Transthoracic Echo Report Name: Fouzia Marroquin Age: 69 Gender: F : 1955 Exam Date: 09/29/2024 15:29 Exam Location: [facility] Ht (in): 66 Wt (lb): 225 Ordering Physician: Attending/Referring Phys: [employer] Librarian Mandy Restrepo RDCS Procedure CPT: Indications: Cardiac Hx: Technical Quality: Good Contrast 1: Total Dose (mL): Contrast 2: Total Dose (mL): MEASUREMENTS (Male / Female) Normal Values 2D ECHO LV Diastolic Diameter PLAX 4.1 cm 4.2 - 5.9 / 3.9 - 5.3 cm LV Systolic Diameter PLAX 2.8 cm IVS Diastolic Thickness 1.6 cm 0.6 - 1.0 / 0.6 - 0.9 cm LVPW Diastolic Thickness 1.4 cm 0.6 - 1.0 / 0.6 - 0.9 cm LV Relative Wall Thickness 0.7 RV Internal Dim ED PLAX 3.0 cm LVOT Diameter 2.3 cm LA Systolic Diameter LX 3.6 cm 3.0 - 4.0 / 2.7 - 3.8 cm LV Diastolic Volume MOD BP 83.3 cm??? 67 - 155 / 56 - 104 cm??? LV Systolic Volume MOD BP 36.2 cm??? 22 - 58 / 19 - 49 cm??? LV Ejection Fraction MOD BP 56.5 % >= 55 % LV Cardiac Index MOD BP 1504.5 cm???/min???m??? LV Diastolic Volume MOD 4C 110.6 cm??? LV Systolic Volume MOD 4C 49.9 cm??? LV Ejection Fraction MOD 4C 54.9 % LV Cardiac Index MOD 4C 1940.1 cm???/min???m??? LV Diastolic Length 4C 8.0 cm LV Systolic Length 4C 6.4 cm LV Diastolic Volume MOD 2C 51.1 cm??? LV Systolic Volume MOD 2C 21.9 cm??? LV Ejection Fraction MOD 2C 57.1 % LV Cardiac Index MOD 2C 932.5 cm???/min???m??? LV Diastolic Length 2C 6.5 cm LV Systolic Length 2C 5.3 cm LA Volume 64.2 cm??? 18 - 58 / 22 - 52 cm??? LA Volume Index 28.9 cm???/m??? 16 - 28 cm???/m??? M-MODE Aortic Root Diameter MM 3.2 cm AV Cusp Separation MM 2.2 cm DOPPLER AV Peak Velocity 279.2 cm/s AV Peak Gradient 31.2 mmHg AV Mean Velocity 170.3 cm/s AV Mean Gradient 14.1 mmHg AV Velocity Time Integral 57.0 cm AI Peak Velocity 301.8 cm/s AI Peak Gradient 36.4 mmHg AI Pressure Half Time 944.8 ms LVOT Peak Velocity 142.5 cm/s LVOT Peak Gradient 8.1 mmHg LVOT Velocity Time Integral 26.4 cm LVOT Stroke Volume 111.6 cm??? LVOT Stroke Volume Index 53.1 ml/m??? LVOT Cardiac Index 3563.4 cm???/min???m??? AV Area Cont Eq vti 2.0 cm??? AV Area Cont Eq pk 2.2 cm??? MV Area PHT 3.6 cm??? Mitral E Point Velocity 59.2 cm/s Mitral A Point Velocity 94.1 cm/s Mitral E to A Ratio 0.6 MV Deceleration Time 212.1 ms TR Peak Velocity 248.5 cm/s TR Peak Gradient 24.7 mmHg Right Ventricular Systolic Press 29.2 mmHg FINDINGS Left Ventricle Left ventricular ejection fraction is estimated at 55-60 %. Left ventricular cavity size normal. Moderate increased septal wall thickness. Moderately increased posterior wall thickness. Normal left ventricular wall motion. Right Ventricle Normal right ventricular size and function. Right ventricular systolic pressure within normal limits. Right Atrium Normal right atrial size. No right atrial thrombus or mass seen. Left Atrium Moderately increased left atrial volume. No left atrial thrombus or mass present. Mitral Valve Structurally normal mitral valve. Mild mitral regurgitation. Aortic Valve Aortic valve sclerosis. Mild aortic stenosis with a peak gradient of 31 mmHg and a mean gradient of 14 mmHg. Tricuspid Valve Structurally normal tricuspid valve. Mild tricuspid regurgitation. Pulmonic Valve Pulmonic valve not well visualized. No pulmonic regurgitation. Pericardium No pericardial or pleural effusion. Aorta Normal size aortic root and proximal ascending aorta. CONCLUSIONS LVEF 55 to 60% Moderate concentric LVH Mild MR Moderate left atrial dilatation Mild aortic stenosis, mean gradient 14 mmHg Atrial fibrillation Previewed by: Dr Shorty Hassan (Electronically Signed) Final Date: 29 September 2024 16:46 MTDD
== END | disposition home or self-care (01) ==
LOC: RADECHMAIN 15:15
PROVIDERS: ATTEND Internal Medicine
DX: I08.0 Rheumatic disorders of both mitral and aortic valves (principal); I48.91 Unspecified atrial fibrillation
CPT/HCPCS: 93306

== ENCOUNTER → 2025-01-25 | Outpatient (CLI) | payer MEDICARE | END | disposition home or self-care (01) | LOC: LABPAT 11:06 | PROVIDERS: ATTEND Orthopaedic Surgery | DX: Z01.812 Encounter for preprocedural laboratory examination (principal); Z22.322 Carrier or suspected carrier of Methicillin resistant Staphylococcus aureus; M17.12 Unilateral primary osteoarthritis, left knee | CPT/HCPCS: 87070 ==

== ENCOUNTER 2025-02-01 08:16 | Day surgery (SDC) | payer MEDICARE ==
--- NOTE | 2025-01-31 08:23 | P.HPOR ---
History of Present Illness H&P Date: 01/31/25 Chief Complaint: Left knee pain The patient is a 69-year-old retired female who presents with progressive left knee pain for the past 3 years. She has had increasing pain recently. She notes pain with weightbearing activities and at night. She notes stiffness. She has tried medications in addition previously underwent arthroscopy in 2012. She notes daily pain that significantly limits her. Review of Systems Per HPI Past Medical History Past Medical History: Cancer, Hyperlipidemia, Hypertension Additional Past Medical History / Comment(s): cutaneous t cell lyphoma age 34( 1988) with chemo and radiation lt groin area in remission since 2000, intermittent heart murmur History of Any Multi-Drug Resistant Organisms: None Reported Past Surgical History: Bariatric Surgery, Cholecystectomy Additional Past Surgical History / Comment(s): lymph node removed lt groin area 1997, Rt. arm dislocated, Lt. CTR, Bilat. bunionectomy, Rt. Achilles tendon repair, Past Anesthesia/Blood Transfusion Reactions: No Reported Reaction Smoking Status: Never smoker - Past Family History Father Family Medical History: Cancer Additional Family Medical History / Comment(s): melanoma Medications and Allergies Home Medications Medication Instructions Recorded Confirmed Type Ascorbic Acid [Vitamin C] 500 mg PO DAILY 10/03/21 01/26/25 History Atorvastatin [Lipitor] 40 mg PO DAILY 10/03/21 01/26/25 History Calcium Carb/Vitamin D3/Vit K1 1 tab PO DAILY 10/03/21 01/26/25 History [Citracal-D3 500 mg Soft Chew] Multivitamins, Thera [Multivitamin 1 tab PO DAILY 10/03/21 01/26/25 History (formulary)] amLODIPine [Norvasc] 10 mg PO DAILY 10/03/21 01/26/25 History Cranberry Fruit Extract [Cranberry] 200 mg PO DAILY 01/26/25 01/26/25 History Meclizine HCl 12.5 mg PO TID PRN 01/26/25 01/26/25 History Allergies Allergy/AdvReac Type Severity Reaction Status Date / Time Sulfa (Sulfonamide Allergy Rash/Hives Verified 01/26/25 10:25 Antibiotics) tramadol Allergy dyspnea,apollo Verified 01/26/25 10:25 h,hives nitrogen mustard Allergy Swelling Uncoded 01/26/25 10:26 vicryl sutures Allergy Swelling Uncoded 01/26/25 10:27 Physical Examination - Knee left Appearance: effusion Effusion grade: grade 2 Valgus alignment in stance: 10 degrees Tenderness with palpation: anterior, lateral Pain: throughout ROM Gait: limping ROM: extension: -15 degrees ROM: flexion: 110 degrees Crepitus with motion: Yes Strength: extension: 5/5 Strength: flexion: 5/5 Meniscal tests: lateral meniscal tests: positive, lateral joint line pain: positive Results The patient is a well-developed well-nourished female approximately 5 foot 6, 235 pounds of endomorphic habitus. HEENT exam is nonfocal, neck is supple. She has painless passive motion of her left hip. Straight leg raise is negative. She is tender about the medial and lateral joint line of the left knee. Collaterals are stable, Shirley's negative, Amy's is equivocal. She has genu valgum alignment. She has an antalgic gait pattern. Her distal neurovascular exam appears intact in the left lower extremity. - Diagnostic results Knee x-ray: image reviewed (X-rays of the left knee obtained the office show severe lateral and patellofemoral compartment narrowing with [id number] change s and subchondral sclerosis.) Assessment and Plan Assessment: Left knee severe tricompartmental osteoarthrosis Plan: I talked to the patient at length regarding her condition along with treatment options. At this point she is having significant pain and mechanical symptoms related to her left knee osteoarthrosis despite conservative measures. After a thorough discussion she opts to proceed with surgery. We will plan to proceed with left total knee arthroplasty. Risks and benefits were discussed at length in layman's terms. We will institute DVT prophylaxis postoperatively.
[~2025-02-01 08:16] MED LIST changes: -LACTATED RINGERS 1,000 ML IV SCH; +TRANEXAMIC 1,000 MG/100ML-NACL 1,000 MG in SALINE 1 100ML.BAG IVPB PRN; +fentaNYL (PF) 50 MCG/ML 2 ML AMP IV PRN
[2025-02-01] MEDS: IV FLUID CONTINUATION 1,000 ML IV ONE (08:45)
[2025-02-01] MEDS: LACTATED RINGERS 1,000 ML IV SCH (09:04)
[2025-02-01] MEDS: ACETAMINOPHEN TAB 500 MG TAB PO PRN (09:04)
[2025-02-01] MEDS: MELOXICAM 7.5 MG TAB PO PRN (09:05)
[2025-02-01] MEDS: DEXAMETHASONE SOD PHOSPHATE 4 MG/ML 1 ML VIAL IV ONE (09:05)
[2025-02-01] MEDS: ONDANSETRON 4 MG/2 ML VIAL IVP ONE (09:05)
[2025-02-01] MEDS: MIDAZOLAM 2 MG/2 ML VIAL IV ONE (09:19)
[2025-02-01] MEDS ORDERED: SODIUM CHLORIDE 0.9% (PF) 10 ML VIAL ONE (10:07)
[2025-02-01] MEDS ORDERED: TRANEXAMIC 1,000 MG/100ML-NACL PREMIX BAG ONE (10:07)
[2025-02-01] MEDS ORDERED: GLYCOPYRROLATE 0.2 MG/ML 2 ML VIAL ONE (10:07)
[2025-02-01] MEDS ORDERED: MIDAZOLAM 2 MG/2 ML VIAL ONE (10:07)
[2025-02-01] MEDS ORDERED: ROPIVACAINE 5 MG/ML 30 ML VIAL ONE (10:07)
[2025-02-01] MEDS ORDERED: DEXAMETHASONE SOD PHOSPHATE 4 MG/ML 1 ML VIAL ONE (10:07)
[2025-02-01] MEDS ORDERED: PROPOFOL 10 MG/ML 20 ML VIAL IV ONE (10:07)
--- NOTE | 2025-02-01 10:11 | P.ANPRN ---
Procedure Note - Anesthesia - Nerve Block Performed Left iPack Single Time Out Performed: Yes Date of Procedure: 02/01/25 Procedure Start Time: : Procedure Stop Time: : Location of Patient: PreOp Indication: Acute Post-Operative Pain, Requested by Surgeon Sedation Type: Sedate with meaningful contact maintained Preparation: Sterile Prep Position: Supine Needle Types: Facet Needle Gauge: 21 Ultrasound used to visualize needle placement: Yes Ultrasound used to observe medication spread: Yes Injectate: 0.5% Ropivacaine (see comment for volume) (20 mls with 4 mg of Dec adron) Blood Aspirated: No Pain Paresthesia on Injection Noted: No Resistance on Injection: Normal
--- NOTE | 2025-02-01 10:13 | P.ANPRN ---
Procedure Note - Anesthesia - Nerve Block Performed Left Adductor Canal Infusion Date of Procedure: 02/01/25 Procedure Start Time: : Procedure Stop Time: :43 Location of Patient: PreOp Indication: Acute Post-Operative Pain, Requested by Surgeon Sedation Type: Sedate with meaningful contact maintained Preparation: Sterile Prep, Sterile Dressing Position: Supine Catheter: Indwelling Needle Types: Pajunk Needle Gauge: 18 Ultrasound used to visualize needle placement: Yes Ultrasound used to observe medication spread: Yes Injectate: 0.5% Ropivacaine (see comment for volume) (10 mls with 10 mls of NS+ 4 mg of Decadron) Blood Aspirated: No Pain Paresthesia on Injection Noted: No Resistance on Injection: Normal
[2025-02-01] MEDS: ceFAZolin 1,000 MG in SODIUM CHLORIDE 0.9% 1,000 ML IRRIGATION ONE (10:42)
[2025-02-01] MEDS ORDERED: ONDANSETRON 4 MG/2 ML VIAL IVP PRN (11:44)
[2025-02-01] MEDS ORDERED: MAGNESIUM HYDROXIDE 2,400 MG/30 ML CUP PO PRN (11:44)
[2025-02-01] MEDS ORDERED: NALOXONE 0.4 MG/ML 1 ML VIAL IV PRN (11:44)
[2025-02-01] MEDS ORDERED: HYDROmorphone 0.5 MG/0.5 ML SYRINGE IVP PRN ×2 (11:44)
--- NOTE | 2025-02-01 12:05 | P.OP ---
Date of Procedure: 02/01/25 Preoperative Diagnosis: Left knee severe tricompartmental osteoarthrosis Postoperative Diagnosis: Same Procedure(s) Performed: Left total knee arthroplastycementedposterior stabilized Implants: DePuy attune size 6 narrow cemented femoral component, size 5 cemented tibial component with a 14 x 50 mm stem extension, 9 mm articular surface, 35 mm cemented patellar component. This is a posterior stabilized implant. Anesthesia: regional, spinal Surgeon: Ernesto Tao Motor And Chassis Inspector #1: Mir Ochoa Estimated Blood Loss (ml): 50 Condition: stable Disposition: PACU Indications for Procedure: The patient is a 70-year-old female who presents with progressive left knee pain secondary to osteoarthrosis despite conservative measures. A discussion of the risks and benefits of operative intervention versus continued conservative measures was made with the patient. She opted to proceed with surgery. Operative risks include infection, neurovascular 3, development of blood clots, fracture, possible component loosening/failure and possible need for subsequent procedures was discussed. Informed consent was obtained. Operative Findings: As below Description of Procedure: The patient was brought to the operating room, and after induction of spinal anesthesia the left lower extremity was prepped and draped in a normal fashion. The tourniquet was inflated to 270 mm marker. A longitudinal incision extending 3 finger breaths above the superior pole of patella extending to the medial aspect the tibial tubercle was then made. The skin and subcutaneous tissues were divided sharply. Electrocautery was used for hemostasis. A medial parapatellar arthrotomy was performed. The medial soft tissues to include the superficial and deep portions of the medial collateral ligament were elevated subperiosteally. The patella was everted. A portion of the retropatellar fat pad was excised sharply. The anterior cruciate ligament was sacrificed. Blunt retractors were placed. A starting hole was made in the distal femur 1 cm anterior to the posterior cruciate ligament origin. An intramedullary femoral guide was then inserted planning on 5 valgus distal cut with 9 mm distal resection. The cutting block was pinned in place. The distal cut was then made. The posterior referencing sizing guide was utilized. I felt size 6 narrow was most appropriate. 3 of external rotation was built into the system and verified off the trans-epicondylar axis and the posterior condyles. The cutting block was pinned in place. The anterior, posterior, and chamfer cuts then made. Bone fragments were removed. The intercondylar guide was placed and the notch cut was made with a sagittal saw. The bone block was removed in one fragment. The trial component was then placed. There is good anterior to p osterior and medial to lateral fit. The distal peg holes were drilled. The trial component was removed. Attention was then paid towards preparing the proximal tibia. An extra medullary guide was utilized in line with the tibial shaft and second metatarsal distally. I planned on 2 mm resection from the medial compartment. The cutting block was pinned in place. The proximal tibial cut was then made. The bone was removed in one fragment. The remnants of the medial and lateral menisci were excised at the capsular junction with electrocautery. The tibia sized most appropriately at size 5. The trial femoral and tibial components were placed along with a 9 mm articular surface. I was able to obtain full flexion and extension with internal and external rotation. After several flexion and extension cycles, the tibial rotation was marked with electrocautery line with the medial one third of the tibial tubercle. Attention was then paid towards preparing the patella. A patella reamer was utilized taking stem to 14 mm of bone stock. A good flush cut was made. The patella sized most appropriately 35 mm. The peg holes were drilled. The trial components placed. I had good patellofemoral tracking with no hands technique. The trial components were then removed. The tibia was prepared in the appropriate rotation with appropriate drill and keel punch. The posterior osteophytes were removed with a curved osteotome. The flexion and extension gaps were checked and felt to be symmetric at 9 mm. A trial components were then removed. The bony surfaces were prepared with pulsatile lavage and dried. The tibial component was then cemented place was fully seated. Excess cement was removed. The femoral component cemented place and was fully seated. Excess cement was removed. The trial 9 mm articular surface was placed and the knee was put in full extension. The patella component was cemented place. After the cement had sufficiently hardened, the knee was again taken through a range of motion. Again I was able to obtain full flexion and extension with varus and valgus stress. The trial 9 mm articular surface was removed and the final one inserted. This was fully seated. Care was taken to avoid any soft tissue interposition. Pulsatile lavage was again utilized. The medial parapatellar arthrotomy was closed with #2 Ethibond suture. The tourniquet was deflated with approximately 50 minutes total tourniquet time. Final hemostasis was obtained with the cautery. There was minimal bleeding therefore a deep drain was not placed. The subcutaneous tissues were reapproximated with interrupted 2-0 Vicryl sutures. The skin was reapproximated with 3-0 subcuticular strata fix suture. Skin tape and adhesive was applied. A sterile dressing was applied. The patient was awoken from sedation and transferred to recovery room in good condition. Blood loss was estimated at 50 mL. No complications were incurred. Sponge and needle counts were correct at the end of the case. Mir REINOSO assisted during the major components of this case to include exposure, bone resection, implantation, and closure.
[2025-02-01] MEDS: ROPIVACAINE 1,100 MG, SODIUM CHLORIDE 0.9% 500 ML 330 ML, EMPTY PAIN BALL 1 EACH MISCELLANE PRN (12:21)
--- NOTE | 2025-02-01 12:41 | XR ---
EXAMINATION TYPE: XR knee limited LT DATE OF EXAM: 02/01/2025 CLINICAL INDICATION: Female, 70 years old with history of Evaluation for Postop abnormality and align ment, pain TECHNIQUE: Frontal and lateral views of the knee were obtained. COMPARISON: Outside left knee x-ray December 2022 5. FINDINGS: Metallic hardware from total LEFT knee arthroplasty is seen and appears satisfactory in al ignment and position. There is evidence of recent surgery with diffuse subcutaneous gas and soft tis soha swelling noted. Large Posterior calcification redemonstrated. IMPRESSION: METALLIC HARDWARE FROM TOTAL LEFT KNEE ARTHROPLASTY IS SATISFACTORY IN ALIGNMENT. [facility], , 02/01/2025 12:39 PM
[2025-02-01] MEDS: HYDROcodone/APAP 7.5-325MG 1 EACH TAB PO PRN (14:37)
--- NOTE | 2025-02-01 15:45 | P.CONS ---
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 She has had progressively worsening left knee pain for the past 3 years, which is worsened with weightbearing activities and at night. She has previously tried medical therapy for the pain and underwent an arthroscopy of this same knee in 2011. Patient is now postop with no known surgical complications. Patient is sitting up in bed resting with no complaints of pain. Patient reports absence of fever, chills, weight loss, chest pain, palpitations, diaphoresis, dyspnea, cough, nausea, vomiting, constipation, diarrhea, abdominal pain, weakness, myalgia, dizziness, headache, and dysuria. Internal medicine was consulted for medical management. Initial lab workup on 01/18/2025 showed WBC 621, hemoglobin 14.0, hematocrit 45.3, platelet 339; sodium 142, potassium 4.4, BUN 23.2, creatinine 0.8, calcium 9.9, total bilirubin 0.5, AST 25, ALT 27, alkaline phosphatase 99; t triglycerides 90.40, cholesterol 234, LDL 148.2, VLDL 18.08, HDL 67.7 Left knee x-ray done postoperatively showed metallic hardware in satisfactory alignment. REVIEW OF SYSTEMS: All systems reviewed, pertinent positives and negatives noted in HPI. All other symptoms are negative. PHYSICAL EXAMINATION: Vitals reviewed GENERAL: No acute distress. Well developed, well nourished. HEENT: Pupils are round and equally reacting to light. EOMI. No scleral icterus. Normocephalic, atraumatic. No pharyngeal erythema. No thyromegaly. CARDIOVASCULAR: S1 and S2 present. No murmurs, rubs, or gallops. PULMONARY: Chest is clear to auscultation, no wheezing, rhonchi, or crackles. ABDOMEN: Soft, nontender, nondistended, normoactive bowel sounds. No palpable organomegaly. MUSCULOSKELETAL: No apparent joint swelling and deformities. EXTREMITIES: Bandage wrapped around left knee NEUROLOGICAL: The patient is alert and oriented x3, Gross neurological examination did not reveal any focal deficits. 5/5 strength bilateral UE and LE. SKIN: No apparent rashes. 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 Chronic Medical Conditions #Hypertension -Resume home Norvasc 10 mg daily #Hyperlipidemia -Resume home Lipitor 40 mg daily #Left total knee arthroplasty -Pain management and DVT prophylaxis per primary surgical team F: IV LR 20cc/hr E: Replete as needed N: Heart healthy diet DVT ppx: per primary surgical team, SCDS Code status: Full code Patient is stable from medical stand point Follow up CBC and CMP in AM Dictation was produced using [employer] dictation software. Please excuse any grammatical, word or spelling errors. I saw and evaluated the patient during the caraballo and critical portions of this encounter, and discussed the case in detail with the resident author of this note, I agree with the Assessment and Plan, and my changes, if any, are highlighted in blue. Past Medical History Past Medical History: Cancer, Hyperlipidemia, Hypertension Additional Past Medical History / Comment(s): cutaneous t cell lyphoma age 34(1988) with chemo and radiation lt groin area in remission since 2000, intermittent heart murmur History of Any Multi-Drug Resistant Organisms: None Reported Past Surgical History: Bariatric Surgery, Cholecystectomy Additional Past Surgical History / Comment(s): lymph node removed lt groin area 1997, Rt. arm dislocated, Lt. CTR, Bilat. bunionectomy, Rt. Achilles tendon repair, Past Anesthesia/Blood Transfusion Reactions: No Reported Reaction Past Psychological History: No Psychological Hx Reported Smoking Status: Never smoker Past Alcohol Use History: Rare Past Drug Use History: None Reported - Past Family History Father Family Medical History: Cancer Additional Family Medical History / Comment(s): melanoma Medications and Allergies Home Medications Medication Instructions Recorded Confirmed Type Ascorbic Acid [Vitamin C] 500 mg PO DAILY 10/03/21 02/01/25 History Atorvastatin [Lipitor] 40 mg PO DAILY 10/03/21 02/01/25 History Calcium Carb/Vitamin D3/Vit K1 1 tab PO DAILY 10/03/21 02/01/25 History [Citracal-D3 500 mg Soft Chew] Multivitamins, Thera [Multivitamin 1 tab PO DAILY 10/03/21 02/01/25 History (formulary)] amLODIPine [Norvasc] 10 mg PO DAILY 10/03/21 02/01/25 History Cranberry Fruit Extract [Cranberry] 200 mg PO DAILY 01/26/25 02/01/25 History Meclizine HCl 12.5 mg PO TID PRN 01/26/25 02/01/25 History Allergies Allergy/AdvReac Type Severity Reaction Status Date / Time Sulfa (Sulfonamide Allergy Rash/Hives Verified 02/01/25 08:40 Antibiotics) tramadol Allergy dyspnea,apollo Verified 02/01/25 08:40 h,hives nitrogen mustard Allergy Swelling Uncoded 02/01/25 08:40 vicryl sutures Allergy Swelling Uncoded 02/01/25 08:40 Physical Exam Osteopathic Statement: *. No significant issues noted on an osteopathic structural exam other than those noted in the History and Physical/Consult. Vitals: Vital Signs Temp Pulse Pulse Resp BP Pulse Ox 02/01/25 13:03 52 L 16 138/73 98 02/01/25 12:48 53 L 16 135/66 95 02/01/25 12:33 55 L 16 133/65 94 L 02/01/25 12:18 60 16 125/56 100 02/01/25 12:03 58 L 16 100/53 100 02/01/25 09:40 100 14 132/60 99 02/01/25 08:53 98.7 F 70 14 144/65 97 Intake and Output 01/31/25 02/01/25 02/01/25 22:59 06:59 14:59 Intake Total 851 Output Total 50 Balance 801 Intake: IV 851 Output: Estimated Blood Loss 50 Other: Weight 106.4 kg
[2025-02-01] MEDS: SENNOSIDES-DOCUSATE SODIUM 1 EACH TAB PO SCH (21:06)
[2025-02-01] MEDS: HYDROcodone/APAP 5-325MG 1 EACH TAB PO PRN (21:06)
[2025-02-02 04:14] LABS: ALT 19 U/L (4-34); AST 24 U/L (14-36); African American GFR (CKD) >90 (>60 ml/min/1.73 sqM); Albumin 3.5 g/dL (3.5-5.0); Albumin/Globulin Ratio 1.4; Alkaline Phosphatase 84 U/L (38-126); Anion Gap 9 mmol/L; Blood Urea Nitrogen 19 mg/dL (7-17); Calcium 9.2 mg/dL (8.4-10.2); Carbon Dioxide 24 mmol/L (22-30); Chloride 103 mmol/L (98-107); Globulin 2.5 g/dL; Glucose 148 mg/dL (74-99); Non-African American GFR(CKD) >90 (>60 ml/min/1.73 sqM); Sodium 136 mmol/L (137-145); Total Bilirubin 0.4 mg/dL (0.2-1.3)
--- NOTE | 2025-02-02 07:01 | P.PN ---
Progress Note - Text Progress Note Date: 02/02/25 Postoperative day # 1 status post total knee arthroplasty, and adductor canal catheter placed for postoperative analgesia, currently at ropivacaine 0.2% 8 mL per hour and continuous infusion, visual analogue scale is 3/10, patient using oral pain medication for breakthrough pain. Assessment and plan= Acute postoperative pain, adductor canal catheter for pain control, pain is well controlled we'll continue the same management.
[2025-02-02 08:42] LABS: Basophils # (A) 0.02 X 10*3/uL (0.00-0.10); Basophils % (A) 0.2 %; Eosinophils # (A) 0 X 10*3/uL (0.04-0.35); Eosinophils % (A) 0 %; HCT 36.2 % (37.2-46.3); HGB 11.9 g/dL (12.0-15.0); Lymphocytes # (A) 0.56 X 10*3/uL (0.90-5.00); Lymphocytes % (A) 4.6 %; MCH 27.9 pg (27.0-32.0); MCHC 32.9 g/dL (32.0-37.0); Mean Platelet Volume 10.3 FL (9.5-12.2); Monocytes # (A) 0.48 X 10*3/uL (0.20-1.00); Monocytes % (A) 3.9 %; NRBC Per 100 WBC 0 X 10*3/uL (0.00-0.01); Neutrophils # (A) 11.18 X 10*3/uL (1.80-7.70); Neutrophils % (A) 90.9 %; Platelet Count 277 X 10*3/uL (140-440); RBC 4.26 X 10*6/uL (4.10-5.20); RDW 13.6 % (11.5-14.5); WBC 12.29 X 10*3/uL (4.50-10.00)
[2025-02-02] MEDS: amLODIPine 10 MG TAB PO SCH (09:20)
[2025-02-02] MEDS: ATORVASTATIN 40 MG TAB PO SCH (09:21)
[2025-02-02] MEDS: RIVAROXABAN 10 MG TAB PO SCH (09:22)
[2025-02-02 10:24] VITALS: BP 120/74; PULSE 57; RESP 16; TEMP 97.6
--- NOTE | 2025-02-02 11:46 | P.DS ---
Providers Date of admission: 02/01/2025 Expected date of discharge: 02/02/25 Attending physician: Ernesto Tao Consults: 02/01/25 11:44 Consult Physician Routine Consulting Provider: Catrachita Moyer Consult Reason/Comments: medical management s/p left total knee arthroplasty Do you want consulting provider notified?: Yes Primary care physician: Kirill Garza Hospital Course: Date of admission: 02/01/2025 Date of discharge: 02/02/2025 Admission diagnosis: Left knee osteoarthritis Discharge diagnosis: Same Attending physician: Dr. Tao Surgical procedures: Left total knee arthroplasty Brief history: Patient is a 70-year-old female with a history of progressive primary left knee osteoarthritis. At this point patient has failed conservative treatment measures and has opted to proceed with a elective left total knee arthroplasty. Hospital course: Details of patient's surgery can be found in operative report. Patient tolerated the procedure well and was subsequently transported to orthopedic floor. Patient's orthopeidc and medical care was provided daily. Patient had daily laboratory tests performed for evaluation of overall blood counts. Patient had daily physical therapy to include strengthening range of motion as well as education with walker ambulation. Patient was treated with Xarelto for their postoperative DVT prophylaxis during their inpatient stay. Patient was noted to have a relatively uneventful postoperative course. Patient reported satisfactory pain control with oral pain medications by postoperative day 1. Patient showed satisfactory progress with physical therapy. Patient moved steadily through the program and had no difficulty meeting the goals by postoperative day 1. Given patient's otherwise satisfactory course and having met physical therapy goals, plan is to discharge patient home with health services on postoperative day 1. Discharge condition/disposition: Patient will be discharged home with health services in stable condition. Discharge medications: Instructions are given on resumption of patient's normal daily medications per primary care recommendation, in addition patient will be prescribed [place]; senna; Eliquis 2.5 mg twice daily x 2 weeks. Discharge instructions: 1. Wound care and infection precautions, keep incision dry and covered while showering, no lotions, creams, moisturizers. No soaking, tubs, pools, hottubs. Do not scrub over the incision. 2. Weight-bear as tolerated with walker / cane until follow-up. 3. Ice and elevate when necessary. Do not exceed 20 minutes per hour with ice pack. 4. Utilize compression sleeve until seen at first follow up appointment. 5. Visiting nursing care. 6. Home physical therapy including home CPM. 7. Pain meds and anticoagulants per prescription. 8. Pain medication has potential to cause constipation. Increase oral fluid and fiber intake. Contact primary care provider if you have not had a bowel movement within 48 hours after discharge 9. No anti-inflammatory medication until discussed at first post operative visit, this including Motrin, Aleve, Mobic, Diclofenac. 10. Follow up in office at 2 weeks postop with Artemio Galvin PA-C / Mir Ochoa PA-C 11. Follow up with your primary care doctor 7-10 days after discharge. 12. Contact [facility] with any questions, . Assessment: Left knee osteoarthritis Procedures: Left total knee arthroplasty Patient Condition at Discharge: Good Plan - Discharge Summary Discharge Rx Participant: No New Discharge Prescriptions: New Apixaban [Eliquis] 2.5 mg PO BID #60 tab HYDROcodone/APAP 5-325MG [[place] 5-325] 1 - 2 tab PO Q6HR PRN #36 tab PRN Reason: Pain Sennosides/Docusate Sodium [Senna Plus 8.6-50 mg Softgel] 1 each PO DAILY #20 capsule Continue Calcium Carb/Vitamin D3/Vit K1 [Citracal-D3 500 mg Soft Chew] 1 tab PO DAILY Meclizine HCl 12.5 mg PO TID PRN PRN Reason: Vertigo Cranberry Fruit Extract [Cranberry] 200 mg PO DAILY Ascorbic Acid [Vitamin C] 500 mg PO DAILY Multivitamins, Thera [Multivitamin (formulary)] 1 tab PO DAILY amLODIPine [Norvasc] 10 mg PO DAILY Atorvastatin [Lipitor] 40 mg PO DAILY Discharge Medication List Ascorbic Acid [Vitamin C] 500 mg PO DAILY 10/03/21 [History] Atorvastatin [Lipitor] 40 mg PO DAILY 10/03/21 [History] Calcium Carb/Vitamin D3/Vit K1 [Citracal-D3 500 mg Soft Chew] 1 tab PO DAILY [History] Multivitamins, Thera [Multivitamin (formulary)] 1 tab PO DAILY 10/03/21 [History] amLODIPine [Norvasc] 10 mg PO DAILY 10/03/21 [History] Cranberry Fruit Extract [Cranberry] 200 mg PO DAILY 01/26/25 [History] Meclizine HCl 12.5 mg PO TID PRN 01/26/25 [History] Apixaban [Eliquis] 2.5 mg PO BID #60 tab 02/02/25 [Rx] HYDROcodone/APAP 5-325MG [[place] 5-325] 1 - 2 tab PO Q6HR PRN #36 tab 02/02/25 [Rx] Sennosides/Docusate Sodium [Senna Plus 8.6-50 mg Softgel] 1 each PO DAILY #20 capsule 02/02/25 [Rx] Follow up Appointment(s)/Referral(s): Mir Ochoa, PAC [PHYSICIAN PIG MACHINE SUPERVISOR] - 2 Weeks [facility],Equipment [NON-STAFF] - As Needed (Please call [facility] to arrange delivery of the Continuous Passive Motion (CPM) machine. ) [facility], [NON-STAFF] - 1-2 Days ([facility] will call you to schedule your in home nursing and physical therapy visits. ) Patient Instructions/Handouts: Knee Replacement (GEN) Activity/Diet/Wound Care/Special Instructions: Orthopedic Discharge Instructions: 1. Wound care and infection precautions, keep incision dry and covered while showering, no lotions, creams, moisturizers. No soaking, pools, hot tubs. Do not scrub over incision. 2. Weight-bear as tolerated with walker / cane until follow-up. 3. Ice and elevate when necessary. Do not exceed 20 minutes per hour with ice pack. 4. Utilize compression sleeve until seen at first follow up appointment. 5. Pain meds and anticoagulants per prescription. 6. Pain medication has potential to cause constipation. Increase oral fluid and fiber intake. Contact primary care provider if you have not had a bowel movement within 48 hours after discharge. 7. No anti-inflammatory medication until discussed at first post operative visit, this including Motrin, Aleve, Mobic, Diclofenac. 8. Follow up in office at 2 weeks postop with Artemio Galvin PA-C / Mir Ochoa PA-C 9. Follow up with your primary care doctor 7-10 days after discharge. 10. Contact [facility] with any questions, . aspirin as tolerated keep incision dry and covered while showering. Keep incision clean, dry, intact. While showering, cover fusion tape with Saran wrap. Keep fusion tape on until follow-up appointment office in 2 weeks. Discharge Disposition: HOME WITH HOME HEALTH SERVICES
--- NOTE | 2025-02-02 11:49 | P.PN ---
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 She has had progressively worsening left knee pain for the past 3 years, which is worsened with weightbearing activities and at night. She has previously tried medical therapy for the pain and underwent an arthroscopy of this same knee in 2011. Patient is now postop with no known surgical complications. Patient is sitting up in bed resting with no complaints of pain. Patient reports absence of fever, chills, weight loss, chest pain, palpitations, diaphoresis, dyspnea, cough, nausea, vomiting, constipation, diarrhea, abdominal pain, weakness, myalgia, dizziness, headache, and dysuria. Internal medicine was consulted for medical management. Initial lab workup on 01/18/2025 showed WBC 621, hemoglobin 14.0, hematocrit 45.3, platelet 339; sodium 142, potassium 4.4, BUN 23.2, creatinine 0.8, calcium 9.9, total bilirubin 0.5, AST 25, ALT 27, alkaline phosphatase 99; t triglycerides 90.40, cholesterol 234, LDL 148.2, VLDL 18.08, HDL 67.7 Left knee x-ray done postoperatively showed metallic hardware in satisfactory alignment. 02/02 - Patient seen at bedside this morning. She is reporting normal postoperative pain. Tolerating pain medications orally. Has been utilizing ankle mobility exercises and her incentive spirometer as instructed. She has no acute complaints this time. REVIEW OF SYSTEMS: Pertinent positives and negatives noted in HPI. Physical Exam: General: nontoxic, no distress, appears at stated age Derm: warm, dry, intact Head: atraumatic, normocephalic, symmetric Eyes: EOMI, anicteric sclera Mouth: no lip lesion, mucus membranes moist Cardiovascular: S1 S2 reg, no murmur, rubs, or gallops Lungs: CTA bilateral, no rales, no accessory muscle use Abdominal: soft, non-tender to palpataion, no appreciable organomegaly Extremities: Bandage wrapped around left knee Neuro: Alert, Oriented, CNII-XII grossly intact, gait normal Psych: well appearing, appropriate affect Data Received Today: Labs: WBC 12.29, hemoglobin 11.9, Sodium 136, potassium 4.0, BUN 19, creatinine 0.56, glucose 148 Imagining: No new imaging today Assessment and plan Patient is a 70 year old F with PMH of hypertension, hyperlipidemia, 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 Chronic Medical Conditions #Hypertension -Resume home Norvasc 10 mg daily #Hyperlipidemia -Resume home Lipitor 40 mg daily #Left total knee arthroplasty # Leukocytosis, anticipated outcome of surgery -Pain management and DVT prophylaxis per primary surgical team She is medically optimized for discharge from an internal medicine standpoint. We will continue to follow and see the patient throughout the duration of her stay. Thank you very much for this consult. F: IV LR 20cc/hr E: Replete as needed N: Heart healthy diet DVT ppx: per primary surgical team, SCDS Code status: Full code Anticipated discharge place: Home Anticipated discharge time: 1-2 days Dictation was produced using [employer] dictation software. please excuse any grammatical, word or spelling errors. I have seen and evaluated the patient today. Discussed with the resident and agree with the residents finding and plan as documented in the resident's note. Changes highlighted in blue font. Thank you for allowing us to participate in the care of this pleasant patient. Do not hesitate to contact us with questions. Someone can be reached from the [facility] hospitalist group all hours of the day at [phone] or via perfect serve. Objective - Vital Signs Vital signs: Vital Signs Temp 98.3 F 02/02/25 00:42 Pulse 62 02/02/25 00:42 Resp 18 02/02/25 00:42 BP 106/61 02/02/25 00:42 Pulse Ox 94 L 02/02/25 00:42 FiO2 Intake & Output 02/01/25 02/02/25 02/02/25 18:59 06:59 18:59 Intake Total 971 360 Output Total 50 Balance 921 360 Weight 106.4 kg Intake: IV 851 Intake, IV Titration 120 Amount Lactated Ringers 1,000 ml 120 @ 20 mls/hr IV .Q24H [facility] Rx#:[id number] Oral 360 Output: Estimated Blood Loss 50 Other: Voiding Method Toilet # Voids 2 - Labs CBC & Chem 7: 02/02/25 03:14 02/02/25 03:14 Labs: Abnormal Lab Results - Last 24 Hours (Table) 02/02/25 Range/Units 03:14 Sodium 136 L (137-145) mmol/L BUN 19 H (7-17) mg/dL Glucose 148 H (74-99) mg/dL Total Protein 6.0 L (6.3-8.2) g/dL
--- NOTE | 2025-02-02 12:57 | P.PN ---
Subjective Progress Note Date: 02/02/25 Principal diagnosis: Left knee osteoarthritis Patient was seen at bedside this morning lying in the semirecumbent position with dressing present over left knee. was present during encounter. Patient says she worked with PT/OT earlier this morning and did very well. She did states she had increased pain when she got up with PT/OT however it has been better since she has been resting in bed icing the knee. Patient says she is hoping to go home later today. She says she does have a walker at home. Patient says she has been urinating since surgery yesterday without issue. Patient denies any other problems at this time. Objective - Vital Signs Vital signs: Vital Signs Temp 97.6 F 02/02/25 07:40 Pulse 57 L 02/02/25 07:40 Resp 16 02/02/25 07:40 BP 120/74 02/02/25 07:40 Pulse Ox 95 02/02/25 07:40 FiO2 Intake & Output 02/01/25 02/02/25 02/02/25 18:59 06:59 18:59 Intake Total 971 360 Output Total 50 Balance 921 360 Weight 106.4 kg Intake: IV 851 Intake, IV Titration 120 Amount Lactated Ringers 1,000 ml 120 @ 20 mls/hr IV .Q24H [facility] Rx#:[id number] Oral 360 Output: Estimated Blood Loss 50 Other: Voiding Method Toilet # Voids 2 - Exam Left knee: Incision is clean, dry, and intact. The exofin fusion tape is in good condition. There is minimal soft tissue swelling and ecchymosis surrounding the medial and lateral aspects of the incision. Calf is soft, no tenderness with palpation. Plantar flexion, dorsiflexion, EHL, FHL are intact. Sensory exam to light touch throughout the extremity is intact, dorsal pedis pulses 2+. - Labs CBC & Chem 7: 02/02/25 03:14 02/02/25 03:14 Labs: Abnormal Lab Results - Last 24 Hours (Table) 02/02/25 02/02/25 Range/Units 03:14 03:14 WBC 12.29 H (4.50-10.00) X 10*3/uL Hgb 11.9 L (12.0-15.0) g/dL Hct 36.2 L (37.2-46.3) % Immature Gran # 0.05 H (0.00-0.04) X 10*3/uL Neutrophils # 11.18 H (1.80-7.70) X 10*3/uL Lymphocytes # 0.56 L (0.90-5.00) X 10*3/uL Eosinophils # 0 L (0.04-0.35) X 10*3/uL Sodium 136 L (137-145) mmol/L BUN 19 H (7-17) mg/dL Glucose 148 H (74-99) mg/dL Total Protein 6.0 L (6.3-8.2) g/dL Assessment and Plan Assessment: 1. Left knee osteoarthritis -Postop day 1 status post left total knee arthroplasty Plan: 1. Left knee osteoarthritis -left total knee arthroplasty form yesterday, 02/01/2025. Patient stable bedside's morning. Patient did do well with PT/OT. Pain under well-controlled. Discharge home today with health services. 2. Appreciate medical management 3. Pain management -[place] 4. DVT prophylaxis - Eliquis 2.5 mg twice daily once home 5. GI ppx - senna 6. PT/OT - weightbearing as tolerated with walker 7. Encourage incentive spirometer use 8. Discharge planning -home today with health services Time with Patient: Less than 30
== END 2025-02-02 12:35 | disposition home health service (06) ==
LOC: OR 08:16 → 4SSUR 11:56 → OR 02-02 12:35
PROVIDERS: ATTEND Orthopaedic Surgery
DX: M17.12 Unilateral primary osteoarthritis, left knee (principal); G89.18 Other acute postprocedural pain; E78.5 Hyperlipidemia, unspecified; I10 Essential (primary) hypertension
CPT/HCPCS: 97161; 64448; 64473; 80053; 83735; 85025; 73560; 27447; C1713 ×2; C1776; C1751; J2250; J1100; J0690 ×3; J2405; J2795